=== PATIENT | female | born 1995 | race Caucasian/White ===

== ENCOUNTER 2016-08-06 02:42 | Emergency (ER) | payer OTHER, BC ==
[~2016-08-06] VITALS: Ht 162.5 cm; Wt 77.1 kg
[2016-08-06] MEDS ORDERED: SILVADENE1% T (03:25)
[2016-08-06] MEDS ORDERED: Motrin,Rufen800 MG PO (03:25)
== END 2016-08-06 04:47 | disposition home or self-care (01) ==
LOC: ED 02:42
DX: T23.071A Burn of unspecified degree of right wrist, initial encounter (principal); X08.8XXA Exposure to other specified smoke, fire and flames, initial encounter; Y93.89 Activity, other specified; Y92.89 Other specified places as the place of occurrence of the external cause; Y99.8 Other external cause status